=== PATIENT | female | born 1965 | race Caucasian/White ===

== ENCOUNTER 2019-04-09 07:52 | Emergency (ER) | payer OTHER ==
[~2019-04-09] VITALS: Ht 160 cm; Wt 68.0 kg
[~2019-04-09 07:52] MED LIST: UNKNOWN BP MED
--- NOTE | 2019-04-09 08:03 | NUR ---
CAME IN FOR STIFF NECK X 3 DAYS, TO ER BED 10, HOOKED TO MONITOR AND POX, CHANGED TO HOSP GOWN, WARM BLANKET PROVIDED, PATIENT AOx 4, BREATHING EVEN AND UNLABORED, DR SHAFER AT BEDSIDE.
[2019-04-09] MEDS ORDERED: KETOROLAC TROMETHAMINE INJ 60 MG/2 ML VIAL IM ONE ×2 (08:26→08:30)
[2019-04-09] MEDS ORDERED: DIAZEPAM 5 MG TABLET ONE (08:27)
[2019-04-09] MEDS ORDERED: DIAZEPAM 5 MG TABLET PO ONE (08:30)
--- NOTE | 2019-04-09 08:32 | NUR ---
BACK FROM CT SCAN
--- NOTE | 2019-04-09 09:25 | NUR ---
Patient discharged to home in stable condition. Written and verbal after care instructions given. Patient verbalizes understanding of instruction.
[2019-04-09 09:26] VITALS: BP 142/86
[2019-04-09] MEDS ORDERED: predniSONE 20 MG TABLET PO ONE (09:30)
== END 2019-04-09 09:26 | disposition home or self-care (01) ==
LOC: ER 07:53
DX: M13.88 Other specified arthritis, other site (principal); M62.838 Other muscle spasm; M77.9 Enthesopathy, unspecified; I10 Essential (primary) hypertension; F17.200 Nicotine dependence, unspecified, uncomplicated; Z87.442 Personal history of urinary calculi
CPT/HCPCS: 72125; 96372; 99284; J1885

== ENCOUNTER 2021-02-01 10:06 | Emergency (ER) | payer OTHER ==
[~2021-02-01] VITALS: Ht 160 cm; Wt 66.7 kg
[2021-02-01 10:11] VITALS: BP 176/81
[2021-02-01] MEDS ORDERED: MECLIZINE HCL 25 MG TABLET ONE (10:22)
[2021-02-01] MEDS ORDERED: MECLIZINE HCL 12.5 MG TABLET PO ONE (10:30)
--- NOTE | 2021-02-01 10:58 | NUR ---
TAKEN TO CT
[2021-02-01] MEDS ORDERED: MECL-159 PO (11:29)
--- NOTE | 2021-02-01 11:34 | NUR ---
Patient discharged to home in stable condition. Written and verbal after care instructions given. Patient verbalizes understanding of instruction.
== END 2021-02-01 11:38 | disposition home or self-care (01) ==
LOC: ER 10:07
DX: S06.0X9A Concussion with loss of consciousness of unspecified duration, initial encounter (principal); V43.52XA Car driver injured in collision with other type car in traffic accident, initial encounter; Y93.89 Activity, other specified; Y92.410 Unspecified street and highway as the place of occurrence of the external cause; Y99.8 Other external cause status
CPT/HCPCS: 70450; 99284; J8597